=== PATIENT | female | born 1930 | race Caucasian/White ===

== ENCOUNTER 2019-04-19 13:19 | Inpatient (IN) ==
[2019-04-19] MEDS ORDERED: SODIUM CHLORIDE 0.9% 1000ML 1,000 ML IV SCH (13:45)
[2019-04-19 14:11] LABS: Basophils # (auto) 0.04 K/uL (0-0.2); Basophils % (auto) 0.2 %; Eosinophils # (auto) 0.01 K/uL (0-0.5); Hematocrit (blood only) 37.9 % (37-47); Hemoglobin 12.4 g/dL (12.0-16.0); Immature Granulocytes % (auto) 1.5 %; Lymphocytes # (auto) 1.42 K/uL (1.2-3.4); Mean Corpuscular Hgb Conc 32.7 g/dL (32-36); Mean Corpuscular Volume 99.2 fL (80-100); Mean Platelet Volume 9.2 fL (7.4-10.4); Monocytes # (auto) 2.22 K/uL (0.11-0.59); Monocytes % (auto) 10.9 %; Neutrophils # (auto) 16.38 K/uL (1.4-6.5); Neutrophils % (auto) 80.4 %; Nucleated RBC # (auto) 0.03 K/uL (0-0); Nucleated RBC % (auto) 0.1 %; Platelet Count 318 K/uL (130-400); RDW Coefficient of Variation 16.1 % (11.5-14.5); Red Blood Count 3.82 M/uL (4.2-5.4); White Blood Count 20.37 K/uL (4.8-10.8)
--- NOTE | 2019-04-19 14:21 | XRay Report ---
XR chest 1V portable HISTORY: 88 years-old Female weakness acute weakness COMPARISON: Chest radiograph 01/03/2019 TECHNIQUE: Portable AP view of the chest FINDINGS: Patient is slightly rotated. Cardiomediastinal and hilar silhouettes are unchanged. Calcification of the thoracic aortic arch. Mild biapical pleural-parenchymal scarring redemonstrated. There is mild ri ght hemidiaphragmatic elevation without pneumothorax, large pleural effusion or overt pulmonary edema . Linear retrocardiac left basilar opacities. Degenerative changes of the shoulders and spine. Subacu te impacted comminuted left proximal humeral fracture. IMPRESSION: 1. No acute process. 2. Linear retrocardiac left basilar opacities suggest atelectasis/scarring. 3. Impacted subacute appearing proximal left humeral fracture. The above report was generated using voice recognition software. It may contain grammatical, syntax o r spelling errors. Electronically signed by: Matthew Jones M.D. 04/19/2019 2:19 PM
[2019-04-19 14:41] LABS: Appearance Urine Clear (Clear); Bacteria Urine Automated Negative (Negative); Bilirubin Urine Negative (Negative); Blood Urine Negative (Negative); Color Urine Dark Yellow; Epithelial Cell Urine Auto >30 /lpf (0-5); Glucose Urine UA Negative (Negative); Ketones Urine Trace (Negative); Leukocyte Esterase Urine 2+ (Negative); Nitrite Urine Negative (Negative); Protein Urine Negative (Negative); RBC Urine Automated 0-4 /hpf (0-4); Specific Gravity Urine 1.023 (1.000-1.030); Urobilinogen Urine Negative (Negative)
[2019-04-19 14:52] LABS: Alanine Aminotransferase 28 U/L (12-78); Albumin Level 2.4 gm/dl (3.4-5.0); BUN Creatinine Ratio 41.7 (10-20); Blood Urea Nitrogen 31 mg/dl (7-18); Calcium 8.5 mg/dl (8.5-10.1); Carbon Dioxide 24 mmol/L (21-32); Chloride 110 mmol/L (98-107); Creatinine Clr Calc Pharmacy 43.7 ml/min; Est GFR (African American) 81.9; Est GFR (Non-African American) 70.7; Glucose 107 mg/dl (70-99); Sodium 142 mmol/L (136-145)
[2019-04-19 15:00] LABS: Albumin Globulin Ratio 0.6 (0.9-2); Alkaline Phosphatase 118 U/L (45-117); Bilirubin,Total 0.9 mg/dl (0.2-1); Globulin 3.8 gm/dl (2.5-4.0); Total Protein 6.2 gm/dl (6.4-8.2); Troponin I < 0.015 ng/ml (0-0.045)
--- NOTE | 2019-04-19 15:04 | CT Scan Report ---
ABDOMEN AND PELVIS CT WITHOUT CONTRAST CT DOSE: 485.82 mGycm HISTORY: Lower abdominal pain. TECHNIQUE: Multiaxial CT images of the abdomen and pelvis were performed without contrast. A dose lo wering technique was utilized adhering to the principles of ALARA. COMPARISON STUDY: None. FINDINGS: Small fat-containing bilateral Bochdalek's hernias. No pneumoperitoneum. No pneumatosis. Th ere is a left total hip arthroplasty. No suspicious lytic or blastic osseous lesions. Small hiatus he rnia. Punctate calcification within the right kidney which is likely vascular. A 2 cm hypodense lesio n within the upper pole the left kidney is incompletely characterize on this noncontrast study but fa vors a cyst. The unenhanced liver, spleen, and pancreas are unremarkable. Normal adrenal glands. No g allbladder wall thickening. The gallbladder and common bile duct are mildly distended. The common ben e duct measures up to 11 mm in diameter. No retroperitoneal lymphadenopathy. Normal caliber abdominal aorta. The bladder is decompressed by Martinez catheter. There is bladder wall thickening with adjacent fat stranding. The uterus contains a small amount of gas at the endometrium. Large amount of stool w ithin the sigmoid colon and rectum. A large stool ball within the rectum measures up to 9.7 cm in ori meter. There is perisigmoid and perirectal edema/fat stranding with associated bowel wall thickening. Of note, evaluation for bowel pathology is suboptimal due to the lack of intravenous and oral contra st. Multiple colonic diverticula. Moderate well-formed stool throughout the remaining colon. Normal a ppendix. No evidence for bowel obstruction. IMPRESSION: 1. Large amount stool within the sigmoid colon and rectum with a large stool ball measuring 9.7 cm in the rectum. There is associated bowel wall thickening and perisigmoid/perirectal edema and fat stra nding consistent with inflammatory change. Therefore, this favors a stercoral colitis. Infectious/inf lammatory colitis or possibly diverticulitis could also have a similar appearance. 2. Bladder wall thickening with adjacent inflammatory change. This likely represents a cystitis. George mmend correlation with urinalysis. Of note, the bladder is decompressed by Martinez catheter. 3. Mild dilatation of the gallbladder and common bile duct. Recommend correlation with LFTs to exclud e an obstructive process. Electronically signed by: Shahram Escudero M.D. 04/19/2019 3:02 PM
[2019-04-19] MEDS ORDERED: PIPERACILLIN/TAZOBACTAM 4.5 GM/120 ML BAG IV ONE (15:29)
[2019-04-19] MEDS ORDERED: DAPTOmycin 325 MG in SYRINGE 0 ML IV ONE (15:29)
[2019-04-19] MEDS ORDERED: PIPERACILL/TAZOBAC CONSULT ACTIVE PRN (15:29)
[2019-04-19] MEDS ORDERED: SODIUM CHLORIDE 0.9% 1000ML 500 ML IV ONE ×2 (15:29→15:31)
[2019-04-19 16:37] LABS: Magnesium 2.3 mg/dl (1.8-2.4)
--- NOTE | 2019-04-19 16:37 | Communication Note ---
Date of Service: April 19, 2019 88-year-old female was at [facility] presents with reduced urination and abdominal discomfort. Family noted increased abdominal distention over the weekend and for the past couple of days staff at [facility] has been monitoring this. They noted urinary retention yesterday and the patient was straight cathed however, she continued to have urinary issues and was therefore sent into the ER.On arrival to the ER she was afebrile and in no acute distress with a heart rate in the low 100s to 120s with normal respiratory rate and normal to low blood pressure. Per her daughter her blood pressure in the 90s is normal reading for her. Lab work revealed a blood cell count of 20,000, normal H&H and normal platelets. Her chemistry revealed a sodium of 142, BUN of 31 creatinine 0.75 with a GFR that was normal. Her magnesium was 2.3. Aminotransferases were not elevated, troponin was normal urinalysis revealed no bacteria and greater than 30 epis with 2+ leuk esterase. Her urine was dark yellow to orange in color but appearing very concentrated. A Martinez was placed and no output was officially recorded however staff stated 250 cc returned. On exam the patient is in no acute distress and demented. She is able to articulate words with normal speech but she is not oriented or able to answer historical questions. History was taken from the daughter who was at bedside. There is no respiratory distress with clear lungs to auscultation bilaterally. Abdominal exam reveals a protuberant but nondistended abdomen that is soft. There is generalized tenderness throughout specifically in the suprapubic area. She does have a stage III pressure wound on her left heel that is not acutely draining but does have some whitish material inside the ulcer concerning for possible infection. There is some erythema around this but not consistent with infection. At one point her heart rate went up into the 120s and her blood pressure was measured at 80 systolic with a picture concerning for sepsis. Blood cultures were drawn and broad-spectrum antibiotics were administered in the ER including daptomycin and Zosyn. IV fluids were given. Notably, a nurse in the ER changed the blood pressure cuff to one more appropriately sized for her and her blood pressure reread at 98 systolic. Assessment: 1. Sepsis-meeting sepsis criteria with possible infection. It is also possible that is in response to retained stool. We will also need to image the foot to ensure no evidence of osteomyelitis source. Exam is limited because of her dementia. Continue with laxatives, suppositories and enema if needed. Continue broad-spectrum antibiotics pending blood pressure results and clinical improvement. Trend CBC in a.m. Treat dehydration with IV fluids. 2. Dehydration-as evidenced from BUN to creatinine ratio that is elevated and clinical picture (dark concentrated urine, elevated specific gravity on urinalysis, low urine output, high normal sodium). Continue with IV fluids. She will need to be encouraged to drink fluids. 3. Constipation-plan as above 4. Stage III pressure ulcer on left heel-rule out osteomyelitis with x-ray as initial screening and MRI if needed. Continue broad broad-spectrum antibiotics. Consult wound care. 5. Ambulatory dysfunction-daughter reports 5 falls in the last 6 months to year. The patient was recently seen in the ER for a fall with trauma to the head and byron were placed. On exam this area is caked with scab material and byron are not readily visible. Will need to have nursing clean this area off and possibly remove byron this admission. PT/OT for evaluation. Hilda Shaw DO [facility] Hospitalist
[2019-04-19] MEDS ORDERED: GLYCERIN ADULT 12 EA SUPP PR SCH (17:15)
--- NOTE | 2019-04-19 17:34 | XRay Report ---
XR foot LT min 3V routine CLINICAL HISTORY: Right foot pain. Possible osteomyelitis. COMPARISON: None. DISCUSSION: The bones are significantly osteopenic. There are vascular calcifications present. There is an old healed fifth metatarsal fracture. No acute fractures are visualized. There is a soft tissue ulceration of the heel. There is equivocal soft tissue ulceration at the level of the distal phalanx of the great toe. There is no radiographic evidence of acute osteomyelitis. IMPRESSION: 1. Osteopenia 2. No acute fractures 3. No conventional radiographic evidence of osteomyelitis Electronically signed by: Jasmeet Armenta M.D. 04/19/2019 5:32 PM
--- NOTE | 2019-04-19 17:46 | History & Physical Report ---
Date of Service April 19, 2019 Assessment & Plan (1) Sepsis: (2) Colitis: -Admit to [facility] with telemetry -Patient presenting from [facility] for evaluation of abdominal pain and distention, urinary retention -On presentation: WBC 20 K, tachycardic in the 120s to 130s; BP borderline low at times (chronic per daughter); lactate pending -CT ABD/pelvis showing large stool ball in the rectum measuring 9.7 cm in the rectum. There is associated bowel wall thickening and perisigmoid/perirectal edema and fat stranding consistent with inflammatory change. Therefore, this favors a stercoral colitis. Infectious/inflammatory colitis or possibly diverticulitis could also have a similar appearance. -There is also ductal dilatation noted on CT however normal LFTs; cystitis mentioned as well however UA does not suggest infection -leukocytosis and tachycardia possibly being driven by pain and dehydration -Suspect colitis secondary to stool ball/constipation, however given leukocytosis and tachycardia, will cover empirically for antibiotics for now -Has chronic loose stools at baseline, no reports of worsening diarrhea -S/P Dapto and Zosyn in the ED, continue with both -Blood cultures (noted to be obtained after antibiotics) -Left heel wound management as below (3) Open wound of left heel: - ~3 cm wound noted to the left heel, no surrounding erythema or significant drainage -Wound culture from 03/27/2019+ for MRSA, patient was placed on Bactrim on 03/31 -X-ray was obtained that was negative for osteomyelitis (may need MRI, appreciate recommendations from wound care) -Obtain repeat wound culture -Wound care consult -Antibiotics as above (4) Constipation: -Large stool ball in the rectum as noted above -Start bowel regimen with glycerin suppository x1, MiraLAX every 6 hours, Colace twice daily -Encourage hydration (5) Dehydration: -Patient appears very dry on exam, concentrated urine -NSS at 125/hr -Renal functions normal (6) Urinary retention: -Martinez placed in ER -UA does not suggest UTI -Suspect likely reactionary secondary to colitis/constipation (7) DVT prophylaxis: -SQ heparin History of Present Illness Chief Complaint: Abdominal distention, urinary retention Primary Care Provider: [facility] 88-year-old female who was sent to the ED from [facility] for evaluation of abdominal distention and urinary retention. Yesterday, patient developed urinary retention and has required several straight catheterizations. She also has developed abdominal distention. Labs were obtained that showed a WBC 19 K, and patient was sent to the ED for further evaluation. Patient has underlying dementia and history is somewhat unobtainable from her. Daughter is the bedside who reports that last normal bowel movement was 2 days ago. Patient does have loose stools at baseline secondary to underlying IBS. There is some mild abdominal pain however no nausea or vomiting. Patient denies chest pain shortness of breath. No lightheadedness, dizziness, diaphoresis, syncopal events. In the ED, labs showed WBC 20 K, initial heart rate in the 120s to 130s, BP borderline low at times (chronic per daughter). CT ABD/pelvis is showing large amount stool within the sigmoid colon and rectum with a large stool ball measuring 9.7 cm in the rectum. There is associated bowel wall thickening and perisigmoid/perirectal edema and fat stranding consistent with inflammatory change favoring a stercoral colitis. Infectious/inflammatory colitis or possibly diverticulitis could also have a similar appearance. She was given IVF, IV daptomycin, IV Zosyn. Allergies Allergy/AdvReac Type Severity Reaction Status Date / Time No Known Allergies Allergy Unverified 04/19/19 14:27 Home Medications Home Medications Medication Instructions Recorded Confirmed Type acetaminophen [Tylenol] 650 mg PO Q4H PRN 04/06/19 04/19/19 History aspirin [Aspirin Childrens] 81 mg PO DAILY 04/06/19 04/19/19 History bisacodyl 10 mg ND DIRECTED 04/06/19 04/19/19 History bisacodyl [Dulcolax (bisacodyl)] 10 mg ND DIRECTED PRN 04/06/19 04/19/19 History calcium carbonate 500 mg PO BID 04/06/19 04/19/19 History ergocalciferol (vitamin D2) 50,000 unit PO WK 04/06/19 04/19/19 History [Vitamin D2] oxycodone 5 mg PO Q4H PRN 04/06/19 04/19/19 History sodium phosphates [Fleet Enema] 118 ml ND DIRECTED PRN 04/06/19 04/19/19 History vitamins A,C,[id number]-[id number] 1 cap PO BID 04/06/19 04/19/19 History [PreserVision AREDS] [id number] 1 packet PO BID 04/06/19 04/19/19 History [ArgiMent AT] Past Med/Surg History Medical History Closed fracture of left proximal humerus (Chronic) s/p repair Senile dementia (Chronic) IBS (irritable bowel syndrome) (Chronic) Fracture of left hip (Chronic) s/p repair Surgical History History of D&C (Resolved) Family History Unknown Family history non-contributory Noncontributory secondary to patient's advanced age Social History Preferred Language: Romanian Communication Ability: Effective Beliefs That Will Affect Care: None marital status: / Current Living Situation: Personal Care Facility Current Living Situation Comment: from [facility] Feels Safe at Home: Yes Smoking Status: Never smoker Hx Alcohol Use: Yes Alcohol type: wine Hx Substance Use: No Review of Systems Review of Systems: Reviewed however felt to be somewhat unreliable due to underlying dementia. Physical Exam Constitutional: WD/WN, vitals as above Eyes: PERRL, conjunctivae normal, anicteric sclerae ENMT: Ears: no external ear abnormality Nose: no external nose abnormality Mouth: + dry oral mucous membranes (Tongue extremely dry) Respiratory: normal respiratory effort, lungs clear to auscultation Cardiovascular: Rate/Rhythm: regular rhythm and + tachycardic Vessels: normal peripheral pulses Extremities: no edema Gastrointestinal (Abdomen): Inspection/Auscultation: + abdomen distended and normal bowel sounds Percussion/Palpation: abdomen soft; abdomen nontender and no hepatosplenomegaly Musculoskeletal: no cyanosis or clubbing, extremities motor strength 5/5 Skin: no rashes, warm and dry + wound (Left heel, ~3 cm in diameter, no surrounding erythema or significant drainage noted, granulation tissue present) Neurologic: PERRL, EOMI, accommodation nl, no face palsy, no dysarthria Psychiatric: Orientation: alert, oriented to person and oriented to place; + not oriented to time Cognition: + recent memory not intact Insight: + limited insight Genitourinary: Martinez in place draining tea colored urine Results & Data Vital Signs (Past 12 Hours) Vital Signs Temp Pulse Resp BP Pulse Ox 04/19/19 16:00 123 H 24 80/55 L 90 04/19/19 15:30 105 H 21 101/59 L 97 04/19/19 15:00 122 H 24 91/62 L 88 L 04/19/19 14:55 127 H 24 96/69 L 96 04/19/19 14:30 109 H 29 H 04/19/19 14:00 105 H 26 H 04/19/19 13:30 109 H 24 96 04/19/19 13:29 36.3 C L 115 H 19 118/78 96 04/19/19 13:25 114 H 25 H 118/78 96 Laboratory Results Short CBC 04/19/19 Range/Units 13:56 WBC 20.37 H (4.8-10.8) K/uL Hgb 12.4 (12.0-16.0) g/dL Hct 37.9 (37-47) % Plt Count 318 (130-400) K/uL BMP 04/19/19 13:56 Sodium 142 Potassium Chloride 110 H Carbon Dioxide 24 BUN 31 H Creatinine 0.75 Glucose 107 H Calcium 8.5 Cardiac Enzymes 04/19/19 Range/Units 13:56 Troponin I < 0.015 (0-0.045) ng/ml Liver Function 04/19/19 04/19/19 Range/Units 13:56 16:06 Total Bilirubin 0.9 (0.2-1) mg/dl AST 15 (15-37) U/L ALT 28 (12-78) U/L Alkaline Phosphatase 118 H (45-117) U/L Albumin 2.4 L (3.4-5.0) gm/dl Urine 04/19/19 Range/Units Unknown Urine Color Dark Yellow Urine Appearance Clear (Clear) Urine pH 5.0 (4.5-7.5) Ur Specific [place] 1.023 (1.000-1.030) Urine Protein Negative (Negative) Urine Glucose (UA) Negative (Negative) Diagnostic Findings CT ABD/PELVIS IMPRESSION: 1. Large amount stool within the sigmoid colon and rectum with a large stool ball measuring 9.7 cm in the rectum. There is associated bowel wall thickening and perisigmoid/perirectal edema and fat stranding consistent with inflammatory change. Therefore, this favors a stercoral colitis. Infectious/inflammatory colitis or possibly diverticulitis could also have a similar appearance. 2. Bladder wall thickening with adjacent inflammatory change. This likely represents a cystitis. Recommend correlation with urinalysis. Of note, the bladder is decompressed by Martinez catheter. 3. Mild dilatation of the gallbladder and common bile duct. Recommend correlation with LFTs to exclude an obstructive process. CXR IMPRESSION: 1. No acute process. 2. Linear retrocardiac left basilar opacities suggest atelectasis/scarring. 3. Impacted subacute appearing proximal left humeral fracture. LEFT FOOT X-RAY IMPRESSION: 1. Osteopenia 2. No acute fractures 3. No conventional radiographic evidence of osteomyelitis Code Status & VTE Plan Code Status Patient is a DNR as per my discussion with her daughter at the bedside as well as documentation sent from [facility]. VTE Prophylaxis Plan VTE Prophylaxis will be ordered: Yes
--- NOTE | 2019-04-19 17:48 | Emergency Department Note ---
Entered by Amber Loza acting as a scribe for Myron Amaro MD ED Provider Note CHIEF COMPLAINT: Urinary Retention HISTORY OF PRESENT ILLNESS: The patient is an 88 year old female who presents to the Emergency Room with complaints of urinary retention over the last several days. Per nursing staff, the patient had a straight cath done about 1 hour prior to arrival that put out 250 CCs. Per nursing staff, the patient has also had abdominal pain. Per nursing staff, the patient is a DNR. She denies having headaches, chest pain, and shortness of breath. Limited HPI secondary to AMS. REVIEW OF SYSTEMS: Limited ROS secondary to AMS. PMHx/PSHx: Senile dementia, CKD, IBS SOCIAL HISTORY: [facility]. PHYSICAL EXAM: GENERAL: Awake, alert, well-appearing, in no distress HENT: Normocephalic, atraumatic. Oropharynx unremarkable. EYES: PERRL. Normal conjunctiva. Sclera non-icteric. NECK: Inspection normal. Non-tender. Supple. No nuchal rigidity. FROM. No masses. RESPIRATORY: Clear to auscultation. No wheezes. No rales. Normal respiratory effort. CARDIAC: Normal rate. Normal rhythm. No murmurs. No rubs. Extremities warm and well perfused. Pulses equal. No JVD. GI: Soft, non-distended. Lower abdominal tenderness to palpation. No rebound or guarding. No masses. RECTAL: Deferred. MUSCULOSKELETAL: Atraumatic. Chest examination reveals no tenderness. The back is symmetrical on inspection without obvious abnormality. There is no CVA tenderness to palpation. No joint edema. LOWER EXTREMITIES: Calves are equal size bilaterally and non-tender. Trace lower extremity edema. No discoloration. She has a stage 3 quarter size ulcer on the left heel with draining and no surrounding erythema. NEURO: Mildly altered sensorium. SKIN: No rash or jaundice noted. EMERGENCY DEPARTMENT COURSE: 1325: Past medical records reviewed. The patient was evaluated in room B11B, and a complete history and physical examination were performed. 1546: I discussed the patient's case with Dr. Cruz who will evaluate the patient for further management. MEDICAL DECISION MAKING: Nursing notes reviewed and agree them. Additional history obtained from the patient's daughter The patient's history was concerning for altered mental status and urinary retention. Differential diagnosis: Etiologies such as infection, hypoglycemia, electrolyte abnormalities, cardiac sources, intracerebral event, toxicologic, neurologic, as well as others were entertained. Physical examination: As above. The patient had lower abdominal tenderness. ER treatment provided: IV Lock Normal saline hydration IV Zosyn IV daptomycin Martinez catheter On reassessment the patient felt more comfortable. Diagnostics interpretation by me: ECG: No acute ischemia. The labs revealed a significant leukocytosis on CBC. Chemistry panel was unremarkable. Urinalysis showed no convincing evidence of infection. Blood cultures performed. Imaging studies: CT imaging revealed findings concerning for possible diverticulitis. There was also moderate stool present and stercoral colitis was a possibility. The patient will need further management in the hospital. Consultation: A consultation was placed with Dr. Shaw, the [facility] hospitalist. The case was discussed and diagnostics were reviewed. The patient was evaluated in the ER for further treatment. IMPRESSION: Diverticulitis, urinary retention, leukocytosis, hypotension, and constipation PLAN: Admission The scribe's documentation has been prepared under my direction and personally reviewed by me in its entirety. I confirm that the note above accurately reflects all work, treatment, procedures, and medical decision making performed by me. Impression & Plan Diverticulitis, Leukocytosis, Urinary retention, Hypotension, Constipation Past Med/Surg History Medical History Closed fracture of left proximal humerus (Chronic) s/p repair Senile dementia (Chronic) IBS (irritable bowel syndrome) (Chronic) Fracture of left hip (Chronic) s/p repair Surgical History History of D&C (Resolved) Family History Unknown Family history non-contributory Noncontributory secondary to patient's advanced age Social History Preferred Language: Welsh Communication Ability: Effective Beliefs That Will Affect Care: None marital status: / Current Living Situation: Personal Care Facility Current Living Situation Comment: from [facility] Feels Safe at Home: Yes Smoking Status: Never smoker Hx Alcohol Use: Yes Alcohol type: wine Hx Substance Use: No Results & Data Vital Signs Vital Signs - 24 hr 04/19/19 13:25 04/19/19 13:29 04/19/19 13:30 Temperature 36.3 C L Temperature Source Oral Sepsis Recent Fever Within 48 Hours No Sepsis New/Unexplained Change in Mental Status No Sepsis Action Taken by Nursing No Action Required Pulse Rate 114 H 115 H 109 H Pulse Rate from SpO2 Sensor 113 H 118 H Respiratory Rate 25 H 19 24 Respiratory Effort / Characteristics Non-Labored Spontaneous Respiratory Depth Normal Respiratory Pattern Regular Blood Pressure 118/78 118/78 Blood Pressure Mean 91 91 Pulse Oximetry 96 96 96 Oxygen Delivery Method Room Air 04/19/19 14:00 04/19/19 14:30 04/19/19 14:55 Temperature Temperature Source Sepsis Recent Fever Within 48 Hours Sepsis New/Unexplained Change in Mental Status Sepsis Action Taken by Nursing Pulse Rate 105 H 109 H 127 H Pulse Rate from SpO2 Sensor 117 H Respiratory Rate 26 H 29 H 24 Respiratory Effort / Characteristics Respiratory Depth Respiratory Pattern Blood Pressure 96/69 L Blood Pressure Mean 78 Pulse Oximetry 96 Oxygen Delivery Method 04/19/19 15:00 04/19/19 15:30 04/19/19 16:00 Temperature Temperature Source Sepsis Recent Fever Within 48 Hours Sepsis New/Unexplained Change in Mental Status Sepsis Action Taken by Nursing Pulse Rate 122 H 105 H 123 H Pulse Rate from SpO2 Sensor 114 H 116 H 132 H Respiratory Rate 24 21 24 Respiratory Effort / Characteristics Respiratory Depth Respiratory Pattern Blood Pressure 91/62 L 101/59 L 80/55 L Blood Pressure Mean 71 73 63 Pulse Oximetry 88 L 97 90 Oxygen Delivery Method 04/19/19 16:22 04/19/19 16:30 Temperature Temperature Source Sepsis Recent Fever Within 48 Hours Sepsis New/Unexplained Change in Mental Status Sepsis Action Taken by Nursing Pulse Rate 139 H 120 H Pulse Rate from SpO2 Sensor Respiratory Rate 28 H 23 Respiratory Effort / Characteristics Respiratory Depth Respiratory Pattern Blood Pressure 98/68 L 107/60 Blood Pressure Mean 78 75 Pulse Oximetry Oxygen Delivery Method Home Medications Current Medication List: was personally reviewed by me Laboratory Data Attestation: I reviewed the patient's lab results. Result diagrams: 04/19/19 13:56 04/19/19 13:56 Lab Results 04/19/19 04/19/19 04/19/19 Range/Units 13:56 13:56 16:06 WBC 20.37 H (4.8-10.8) K/uL RBC 3.82 L (4.2-5.4) M/uL Hgb 12.4 (12.0-16.0) g/dL Hct 37.9 (37-47) % MCV 99.2 (80-100) fL MCH 32.5 (25-34) pg MCHC 32.7 (32-36) g/dL RDW Std Deviation 58.0 H (36.4-46.3) fL RDW Coeff of Mansi 16.1 H (11.5-14.5) % Plt Count 318 (130-400) K/uL MPV 9.2 (7.4-10.4) fL Immature Gran % (Auto) 1.5 % Neut % (Auto) 80.4 % Lymph % (Auto) 7.0 % [place] % (Auto) 10.9 % Eos % (Auto) 0.0 % Baso % (Auto) 0.2 % Immature Gran # (Auto) 0.30 H (0.00-0.02) K/uL Neut # (Auto) 16.38 H (1.4-6.5) K/uL Lymph # (Auto) 1.42 (1.2-3.4) K/uL [place] # (Auto) 2.22 H (0.11-0.59) K/uL Eos # (Auto) 0.01 (0-0.5) K/uL Baso # (Auto) 0.04 (0-0.2) K/uL Absolute Nucleated RBC 0.03 H (0-0) K/uL Nucleated RBC % (auto) 0.1 % Sodium 142 (136-145) mmol/L Potassium (3.5-5.1) mmol/L Chloride 110 H (98-107) mmol/L Carbon Dioxide 24 (21-32) mmol/L Anion Gap 9.0 (3-11) BUN 31 H (7-18) mg/dl Creatinine 0.75 (0.6-1.2) mg/dl Est Cr Clr Drug Dosing 43.7 ml/min Est GFR ( Amer) 81.9 Est GFR (Non-Af Amer) 70.7 BUN/Creatinine Ratio 41.7 H (10-20) Glucose 107 H (70-99) mg/dl Calcium 8.5 (8.5-10.1) mg/dl Magnesium 2.3 (1.8-2.4) mg/dl Total Bilirubin 0.9 (0.2-1) mg/dl AST 15 (15-37) U/L ALT 28 (12-78) U/L Alkaline Phosphatase 118 H (45-117) U/L Troponin I < 0.015 (0-0.045) ng/ml Total Protein 6.2 L (6.4-8.2) gm/dl Albumin 2.4 L (3.4-5.0) gm/dl Globulin 3.8 (2.5-4.0) gm/dl Albumin/Globulin Ratio 0.6 L (0.9-2) TSH 1.040 (0.300-4.500) uIu/ml Administered Medications Discontinued Medications Sodium Chloride (Nss 1000ml) 1,000 mls @ 125 mls/hr IV .Q8H QUINTIN Stop: 04/19/19 21:44 Last Admin: 04/19/19 14:56 Dose: 125 mls/hr Documented by: [id number] Sodium Chloride (Nss 1000ml) 500 mls @ 999 mls/hr IV .Q31M ONE Stop: 04/19/19 15:59 Last Infusion: 04/19/19 17:12 Dose: 0 mls/hr Documented by: [id number] Admin: 04/19/19 16:32 Dose: 999 mls/hr Documented by: [id number] Piperacillin Sod/Tazobactam Sod (Zosyn) 4.5 gm in 120 mls @ 240 mls/hr IV NOW ONE Stop: 04/19/19 15:58 Last Infusion: 04/19/19 17:12 Dose: 0 mls/hr Documented by: [id number] Admin: 04/19/19 16:31 Dose: 240 mls/hr Documented by: [id number] Daptomycin 325 mg/ Syringe 6.5 mls @ 3.25 mls/min IV NOW ONE; Protocol Stop: 04/19/19 15:30 Last Admin: 04/19/19 16:31 Dose: 3.25 mls/min Documented by: [id number] Imaging Data Radiologist's Impression: Radiology results as stated below per my review and the radiologist's interpretation: XR chest 1V portable HISTORY: 88 years-old Female weakness acute weakness COMPARISON: Chest radiograph 01/03/2019 TECHNIQUE: Portable AP view of the chest FINDINGS: Patient is slightly rotated. Cardiomediastinal and hilar silhouettes are unchanged. Calcification of the thoracic aortic arch. Mild biapical pleural- parenchymal scarring redemonstrated. There is mild right hemidiaphragmatic elevation without pneumothorax, large pleural effusion or overt pulmonary edema. Linear retrocardiac left basilar opacities. Degenerative changes of the shoulde rs and spine. Subacute impacted comminuted left proximal humeral fracture. IMPRESSION: 1. No acute process. 2. Linear retrocardiac left basilar opacities suggest atelectasis/scarring. 3. Impacted subacute appearing proximal left humeral fracture. The above report was generated using voice recognition software. It may contain grammatical, syntax or spelling errors. Electronically signed by: Matthew Jones M.D. 04/19/2019 2:19 PM ABDOMEN AND PELVIS CT WITHOUT CONTRAST CT DOSE: 485.82 mGycm HISTORY: Lower abdominal pain. TECHNIQUE: Multiaxial CT images of the abdomen and pelvis were performed without contrast. A dose lowering technique was utilized adhering to the principles of ALARA. COMPARISON STUDY: None. FINDINGS: Small fat-containing bilateral Bochdalek's hernias. No pneumoperitoneum. No pneumatosis. There is a left total hip arthroplasty. No suspicious lytic or blastic osseous lesions. Small hiatus hernia. Punctate calcification within the right kidney which is likely vascular. A 2 cm hypodense lesion within the upper pole the left kidney is incompletely characterize on this noncontrast study but favors a cyst. The unenhanced liver, spleen, and pancreas are unremarkable. Normal adrenal glands. No gallbladder wall thi ckening. The gallbladder and common bile duct are mildly distended. The common bile duct measures up to 11 mm in diameter. No retroperitoneal lymphadenopathy. Normal caliber abdominal aorta. The bladder is decompressed by Martinez catheter. There is bladder wall thickening with adjacent fat stranding. The uterus contains a small amount of gas at the endometrium. Large amount of stool within the sigmoid colon and rectum. A large stool ball within the rectum measures up to 9.7 cm in diameter. There is perisigmoid and perirectal edema/fat stranding with associated bowel wall thickening. Of note, evaluation for bowel pathology is suboptimal due to the lack of intravenous and oral contrast. Multiple colonic diverticula. Moderate well-formed stool throughout the remaining colon. Normal appendix. No evidence for bowel obstruction. IMPRESSION: 1. Large amount stool within the sigmoid colon and rectum with a large stool ball measuring 9.7 cm in the rectum. There is associated bowel wall thickening and perisigmoid/perirectal edema and fat stranding consistent with inflammatory change. Therefore, this favors a stercoral colitis. Infectious/inflammatory colitis or possibly diverticulitis could also have a similar appearance. 2. Bladder wall thickening with adjacent inflammatory change. This likely represents a cystitis. Recommend correlation with urinalysis. Of note, the bladder is decompressed by Martinez catheter. 3. Mild dilatation of the gallbladder and common bile duct. Recommend yoel elation with LFTs to exclude an obstructive process. Electronically signed by: Shahram Escudero M.D. 04/19/2019 3:02 PM ECG Data Attestation: I personally reviewed and interpreted this ECG as follows: Indication: altered mental status Rhythm: sinus tachycardia Findings: + PAC; no ST depression, no ST elevation and no acute ischemic change Blood Pressure Blood Pressure Findings: Normal blood pressure Discharge Plan Visit Data Chief Complaint: Unable to Void ED Provider: Myron Amaro Discharge Problem: Diverticulitis, Leukocytosis, Urinary retention, Hypotension, Constipation Patient Disposition: Being Evaluated by Hospitalist Discharge Instructions Interventions: ED Discharge Assessment Last Done: 04/19/19 18:02 The scribe's documentation has been prepared under my direction and personally reviewed by me in its entirety. I confirm that the note above accurately refl ects all work, treatment, procedures, and medical decision making performed by me.
[2019-04-19] MEDS: SODIUM CHLORIDE 0.9% 1000ML 1,000 ML IV SCH (18:48)
[2019-04-19] MEDS ORDERED: POTASSIUM CHLORIDE 20 MEQ TABCR PO STA (18:57)
[2019-04-19] MEDS ORDERED: GLYCERIN ADULT 12 EA SUPP PR ONE (19:53)
[2019-04-19] MEDS: POLYETHYLENE (MIRALAX) 17 GM PACK PO SCH ×2 (19:58→23:16)
[2019-04-19] MEDS ORDERED: DAPTOmycin 500 MG VIAL IV SCH (20:00)
[2019-04-19] MEDS ORDERED: KETOROLAC TROMETHAMINE 15 MG/ML VIAL IV ONE (20:04)
[2019-04-19] MEDS ORDERED: KETOROLAC TROMETHAMINE 15 MG/ML VIAL ONE (20:08)
[2019-04-19 20:56] LABS: INR 1.6 (0.9-1.1); Prothrombin Time 15.9 Seconds (9.0-12.0)
[2019-04-19] MEDS: CEROVITE ADV FORMULA TAB PO SCH (21:09)
[2019-04-19] MEDS: DOCUSATE SODIUM 100 MG CAP PO SCH (21:09)
[2019-04-19] MEDS: CALCIUM CARBONATE 1250MG TAB PO SCH (21:09)
[2019-04-19 21:22] LABS: Partial Thromboplastin Ratio 1.9
[2019-04-19 21:26] LABS: Partial Thromboplastin Time 52.6 Seconds (21.0-31.0)
[2019-04-19] MEDS: HEPARIN SOD 5,000 UNIT/0.5 ML VIAL SQ SCH (22:13)
[2019-04-19] MEDS: PIPERACILLIN/TAZOBACTAM 3.375 GM in DEXTROSE 5% 100 ML IV SCH (22:14)
[2019-04-20] MEDS: SODIUM CHLORIDE 0.9% 1000ML 1,000 ML IV SCH ×2 (01:49→14:20)
[2019-04-20] MEDS: ACETAMINOPHEN 325 MG TAB PO PRN (03:39)
[2019-04-20] MEDS: HEPARIN SOD 5,000 UNIT/0.5 ML VIAL SQ SCH ×3 (05:53→21:12)
[2019-04-20] MEDS: POLYETHYLENE (MIRALAX) 17 GM PACK PO SCH ×3 (05:54→17:21)
[2019-04-20] MEDS: PIPERACILLIN/TAZOBACTAM 3.375 GM in DEXTROSE 5% 100 ML IV SCH ×2 (06:02→14:20)
[2019-04-20 06:08] LABS: Hematocrit (blood only) 33.1 % (37-47); Mean Corpuscular Hgb Conc 33.2 g/dL (32-36); Mean Corpuscular Volume 97.6 fL (80-100); Mean Platelet Volume 8.9 fL (7.4-10.4); Nucleated RBC # (auto) 0.02 K/uL (0-0); Nucleated RBC % (auto) 0.1 %; Platelet Count 267 K/uL (130-400); RDW Coefficient of Variation 16.1 % (11.5-14.5); RDW Standard Deviation 56.9 fL (36.4-46.3); Red Blood Count 3.39 M/uL (4.2-5.4); White Blood Count 17.38 K/uL (4.8-10.8)
[2019-04-20 06:38] LABS: BUN Creatinine Ratio 34.1 (10-20); Calcium 7.4 mg/dl (8.5-10.1); Creatinine Clr Calc Pharmacy 41.9 ml/min; Est GFR (African American) 86.1; Est GFR (Non-African American) 74.3; Potassium 3.5 mmol/L (3.5-5.1)
[2019-04-20 07:02] LABS: Fibrinogen 614 mg/dl (184-400); INR 1.3 (0.9-1.1); Prothrombin Time 12.7 Seconds (9.0-12.0)
[2019-04-20] MEDS: CALCIUM CARBONATE 1250MG TAB PO SCH ×3 (08:46→21:13)
[2019-04-20] MEDS: DOCUSATE SODIUM 100 MG CAP PO SCH ×2 (08:47→08:58)
[2019-04-20] MEDS: ASPIRIN 81 MG CHEW PO SCH (08:47)
[2019-04-20] MEDS: CEROVITE ADV FORMULA TAB PO SCH ×2 (08:47→21:12)
--- NOTE | 2019-04-20 11:29 | Hospitalist Progress Note ---
Date of Service April 20, 2019 Assessment & Plan (1) SIRS (systemic inflammatory response syndrome): (2) Colitis: Need to R/O sepsis Present on admission with tachycardia and elevated WBC Came from [facility] for abdominal pain/distention associated with urinary retention CT abd/pelvis showed large stool ball in the rectum measuring 9.7 cm in the rectum. There is associated bowel wall thickening and perisigmoid/perirectal edema and fat stranding consistent with inflammatory change. Therefore, this favors a stercoral colitis. Infectious/inflammatory colitis or possibly diverticulitis could also have a similar appearance. Received IV dapto and zosyn in the ER UA showed no indication for UTI WBC trending down to 17 today Blood cx and wound cx pending Continue current IV abx for now Will get a KUB in am (3) Open wound of left heel: ~3 cm wound noted to the left heel, no surrounding erythema or significant drainage Wound culture from 03/27/2019+ for MRSA, patient was placed on Bactrim on 03/31 X-ray showed no indication for osteomyelitis Not sure if pt will be able to get an MRI if needed due to advance dementia Wound care on board Continue daily wound care Wound cx pending Continue current IV abx (4) Constipation: CT abd/pelvisd showed large stool ball in the rectum Received bowel regimen with glycerin suppository x1, MiraLAX and Colace Now has been having recurrent diarrhea Will hold stool laxative for now (5) Dehydration: Continue IV fluid Monitor for signs of fluid overload (6) Tachycardia: Possible related to dehydration HR improves after hydration Will continue monitor (7) Diarrhea: Related to Laxatives Had about 11 episodes of diarrhea Will monitor electrolytes Continue IVF (8) Urinary retention: Possible related to constipation due to the large stool ball in rectum Continue solis cath Continue monitor (9) DVT prophylaxis: -SQ heparin CODE STATUS DNR/DNI Subjective Pt was seen and examined. Lying in bed with no distress. Pt said that she feels ok Daughter at bedside said that pt she seems much better compare to yesterday. Nurse said that she does have multiple episode of diarrhea As per nurse stools soft and now getting watery in the last 2 BM Denies any chest pain, palpitation, dizziness and SOB Physical Exam Physical Exam: General- No acute distress Head- atraumatic Eyes- PERRL, EOMI, ENT- oropharynx clear Neck- supple, no JVD Lungs- diminished breath sound Heart- regular rhythm; no murmur Abdomen- normal bowel sounds, soft, nontender Extremities- no calf tenderness, wound in left heel area with no drainage Neuro- alert, oriented x 3; PERRL, EOMI; no facial palsy; no dysarthria Skin- warm & dry Results & Data Vital Signs (Past 12 Hours) Vital Signs Temp Pulse Pulse Pulse Resp BP Pulse Ox 04/20/19 08:00 103 H 04/20/19 07:23 36.8 C 79 18 102/60 99 04/20/19 04:00 36.8 C 69 16 96/60 L 99 04/19/19 23:38 36.9 C 100 H 19 99/61 L 97 04/19/19 23:32 103 H
[2019-04-20] MEDS ORDERED: DAPTOmycin 200 MG in SYRINGE 0 ML IV SCH (16:00)
[2019-04-21] MEDS: PIPERACILLIN/TAZOBACTAM 3.375 GM in DEXTROSE 5% 100 ML IV SCH ×2 (00:15→08:12)
[2019-04-21] MEDS: ACETAMINOPHEN 325 MG TAB PO PRN ×3 (01:46→21:15)
[2019-04-21] MEDS: SODIUM CHLORIDE 0.9% 1000ML 1,000 ML IV SCH ×2 (03:40→16:02)
[2019-04-21] MEDS: HEPARIN SOD 5,000 UNIT/0.5 ML VIAL SQ SCH ×3 (05:13→21:10)
[2019-04-21 06:19] LABS: Hematocrit (blood only) 33.5 % (37-47); Mean Corpuscular Hgb Conc 32.8 g/dL (32-36); Mean Corpuscular Volume 98.8 fL (80-100); Mean Platelet Volume 9.1 fL (7.4-10.4); Platelet Count 275 K/uL (130-400); RDW Coefficient of Variation 15.8 % (11.5-14.5); RDW Standard Deviation 56.7 fL (36.4-46.3); Red Blood Count 3.39 M/uL (4.2-5.4); White Blood Count 11.94 K/uL (4.8-10.8)
--- NOTE | 2019-04-21 06:53 | Magnetic Resonance Report ---
MR foot LT w/o con CLINICAL HISTORY: 88 years-old Female presenting with MRI of Left heel to r/o osteomyelitis, history of left heel wound, MRSA infection, nonhealing. TECHNIQUE: Multisequence, multiplanar MR imaging of the left foot was performed without the use of in travenous contrast. IV contrast: None. COMPARISON: Plain radiographs from 04/19/2019. FINDINGS: Localizer images: Unremarkable. Due to patient discomfort, not all of the sequences were acquired. This limits diagnostic sensitivity the exam. Furthermore, the sequences that were acquired are degraded by motion artifact to varying d egrees. A marker was placed over the left heel at the site of a visible wound. This is located over the later al and posterior aspect. At this site, there is no significant defect of the cutis appreciated. No ma rkedly infiltrated subcutaneous fat. The subjacent calcaneus is preserved. Bone marrow signal throughout the visualized portion of the left ankle and foot is preserved. No acut e fracture or bony edema. Post traumatic deformity of the distal metaphysis of the fifth metatarsal i s suggested. Visualized tendons and ligaments are grossly intact allowing for image quality and limited sequences. Mild edema of the plantar musculature is suggested, nonspecific. Trace ankle joint effusion. IMPRESSION: Due to patient discomfort, not all of the sequences were acquired. This limits diagnostic sensitivity the exam. Furthermore, the sequences that were acquired are degraded by motion artifact to varying d egrees. Minimal if any soft tissue abnormalities apparent on MR at the site of clinical concern. No MR eviden ce of cellulitis or osteomyelitis. Electronically signed by: Vic Roldan M.D. 04/21/2019 6:51 AM
[2019-04-21 06:56] LABS: BUN Creatinine Ratio 18.4 (10-20); Calcium 7.2 mg/dl (8.5-10.1); Est GFR (African American) 94.7; Est GFR (Non-African American) 81.7; Potassium 3.3 mmol/L (3.5-5.1)
[2019-04-21] MEDS: CALCIUM CARBONATE 1250MG TAB PO SCH ×2 (08:13→20:12)
[2019-04-21] MEDS: CEROVITE ADV FORMULA TAB PO SCH ×2 (08:13→20:12)
[2019-04-21] MEDS: ASPIRIN 81 MG CHEW PO SCH (08:13)
[2019-04-21] MEDS: DOXYCYCLINE HYCLATE 100 MG CAP PO SCH ×2 (13:56→20:12)
--- NOTE | 2019-04-21 15:55 | Wound Consultation ---
Date of Consultation April 21, 2019 Assessment & Plan (1) Stage II pressure ulcer of left heel: Patient with stage II pressure ulcer of her left heel. Continue IV antibiotics. Wound will be dressed with Santyl, 2 x 2's and foam. If symptoms worsen would not hesitate to get MRI to more definitively rule out osteomyelitis. We will continue to follow along. Thank you for allowing me to participate in the care of this patient. Please not hesitate to call with any questions. History of Present Illness Attending Physician: Dayday Clemons MD This is an 88-year-old female with complicated medical history admitted with sepsis secondary to colitis. She was found to have a stage II pressure ulcer of left heel on admission. Culture was positive for MRSA on 429 and patient was started on Bactrim on the third. Patient is a poor historian and denies any pain. However on exam she jumps when you touch it. Allergies Allergy/AdvReac Type Severity Reaction Status Date / Time No Known Allergies Allergy Unverified 04/19/19 14:27 Home Medications Home Medications Medication Instructions Recorded Confirmed Type acetaminophen [Tylenol] 650 mg PO Q4H PRN 04/06/19 04/19/19 History aspirin [Aspirin Childrens] 81 mg PO DAILY 04/06/19 04/19/19 History bisacodyl 10 mg [place] DIRECTED 04/06/19 04/19/19 History bisacodyl [Dulcolax (bisacodyl)] 10 mg [place] DIRECTED PRN 04/06/19 04/19/19 History calcium carbonate 500 mg PO BID 04/06/19 04/19/19 History ergocalciferol (vitamin D2) 50,000 unit PO WK 04/06/19 04/19/19 History [Vitamin D2] oxycodone 5 mg PO Q4H PRN 04/06/19 04/19/19 History sodium phosphates [Fleet Enema] 118 ml [place] DIRECTED PRN 04/06/19 04/19/19 His tory vitamins A,C,[id number]-lnszkd 1 cap PO BID 04/06/19 04/19/19 History [PreserVision AREDS] gvva-[id number]-[id number]-Zn-[id number] 1 packet PO BID 04/06/19 04/19/19 History [ArgiMent AT] Patient History Medical History Closed fracture of left proximal humerus (Chronic) s/p repair Senile dementia (Chronic) IBS (irritable bowel syndrome) (Chronic) Fracture of left hip (Chronic) s/p repair Surgical History History of D&C (Resolved) Family History Unknown Family history non-contributory Noncontributory secondary to patient's advanced age Social History Preferred Language: Maori Communication Ability: Effective Business Services Assistant Required: Yes Beliefs That Will Affect Care: None marital status: / Current Living Situation: [facility] Current Living Situation Comment: alf Feels Safe at Home: Yes Safety Concerns: Feels Safe At This Time Smoking Status: Never smoker Hx Alcohol Use: No Hx Substance Use: No Review of Systems Review of Systems: All systems reviewed & are unremarkable except as noted in HPI & below Physical Exam Constitutional: WD/WN, vitals as above Eyes: PERRL, conjunctivae normal, anicteric sclerae Respiratory: normal respiratory effort, lungs clear to auscultation Cardiovascular: RRR, no murmur, no edema Skin: Wound measuring 1.5 x 1.6 x 0.2 cm. Wound is covered with thick fibrinous slough. Periwound is intact without inflammation. Neurologic: awake and + confused Psychiatric: Orientation: oriented to person and cooperative Results & Data Vital Signs (Past 12 Hours) Vital Signs Temp Pulse Pulse Pulse Resp BP Pulse Ox 04/21/19 12:00 36.5 C 78 18 113/57 L 100 04/21/19 07:14 78 04/21/19 07:00 36.3 C L 86 16 108/58 L 96 04/21/19 04:39 36.4 C L 91 H 19 100/54 L 92
[2019-04-21] MEDS: COLLAGENASE OINT 30 GM TUBE EXT SCH (16:02)
[2019-04-21] MEDS ORDERED: POTASSIUM CHLORIDE PWD 20 MEQ PACK PO ONE (16:15)
--- NOTE | 2019-04-21 19:08 | Hospitalist Progress Note ---
Date of Service April 21, 2019 Assessment & Plan (1) SIRS (systemic inflammatory response syndrome): (2) Colitis: Present on admission with tachycardia and elevated WBC Came from [facility] for abdominal pain/distention associated with urinary retention CT abd/pelvis showed large stool ball in the rectum measuring 9.7 cm in the rectum. There is associated bowel wall thickening and perisigmoid/perirectal edema and fat stranding consistent with inflammatory change. Therefore, this favors a stercoral colitis. Infectious/inflammatory colitis or possibly diverticulitis could also have a similar appearance. Received IV dapto and zosyn in the ER UA showed no indication for UTI WBC trending down to normal Blood cx no growth Wound cx positive for corynebacterium D/C IV abx Will get a KUB in am On Doxycycline oral (3) Open wound of left heel: ~3 cm wound noted to the left heel, no surrounding erythema or significant drainage Wound culture from 03/27/2019+ for MRSA, patient was placed on Bactrim on 03/31 X-ray showed no indication for osteomyelitis MRI left foot showed No MR evidence of cellulitis or osteomyelitis. Wound care on board Continue daily wound care Wound cx positive for corynebacterium IV abx d/c Continue Doxycy (4) Constipation: CT abd/pelvisd showed large stool ball in the rectum Received bowel regimen with glycerin suppository x1, MiraLAX and Colace Now has been having recurrent diarrhea Will hold stool laxative for now will get a KUB in am (5) Dehydration: Continue gentle IV fluid Monitor for signs of fluid overload (6) Tachycardia: Possible related to dehydration HR improves after hydration Will continue monitor (7) Diarrhea: Related to Laxatives Diarrhea improves If diarrhea becomes watery, please check for Cdiff Will monitor electrolytes Continue gentle IVF (8) Urinary retention: Possible related to constipation due to the large stool ball in rectum Continue solis cath Continue monitor (9) DVT prophylaxis: -SQ heparin CODE STATUS DNR/DNI Subjective Pt was seen and examined Lying in bed with no distress with daughter at bedside Continue to have diarrhea but improves as per nurse Denies any chest pain, palpitation and SOB Physical Exam Physical Exam: General- No acute distress Head- atraumatic Eyes- PERRL, EOMI, ENT- oropharynx clear Neck- supple, no JVD Lungs- diminished breath sound Heart- regular rhythm; no murmur Abdomen- normal bowel sounds, +tenderness Extremities- no calf tenderness, wound in left heel area with no drainage Neuro- alert, oriented, PERRL, EOMI; no facial palsy; no dysarthria Skin- warm & dry Results & Data Vital Signs (Past 12 Hours) Vital Signs Temp Pulse Pulse Resp BP Pulse Ox 04/21/19 12:00 36.5 C 78 18 113/57 L 100 04/21/19 07:14 78
[2019-04-22] MEDS: SODIUM CHLORIDE 0.9% 1000ML 1,000 ML IV SCH ×2 (04:14→17:12)
[2019-04-22] MEDS: HEPARIN SOD 5,000 UNIT/0.5 ML VIAL SQ SCH ×3 (05:26→20:00)
[2019-04-22 07:06] LABS: Hematocrit (blood only) 35.8 % (37-47); Hemoglobin 12.2 g/dL (12.0-16.0); Mean Corpuscular Hgb Conc 34.1 g/dL (32-36); Mean Corpuscular Volume 96.8 fL (80-100); Mean Platelet Volume 9.3 fL (7.4-10.4); Platelet Count 312 K/uL (130-400); RDW Coefficient of Variation 15.3 % (11.5-14.5); White Blood Count 9.76 K/uL (4.8-10.8)
[2019-04-22] MEDS: DOXYCYCLINE HYCLATE 100 MG CAP PO SCH ×2 (08:21→20:00)
[2019-04-22] MEDS: COLLAGENASE OINT 30 GM TUBE EXT SCH (08:21)
[2019-04-22] MEDS: CALCIUM CARBONATE 1250MG TAB PO SCH ×2 (08:22→20:00)
[2019-04-22] MEDS: ASPIRIN 81 MG CHEW PO SCH (08:22)
[2019-04-22] MEDS: CEROVITE ADV FORMULA TAB PO SCH ×2 (08:22→20:00)
[2019-04-22 09:18] LABS: BUN Creatinine Ratio 13.1 (10-20); Calcium 7.8 mg/dl (8.5-10.1); Creatinine Clr Calc Pharmacy 62.8 ml/min; Est GFR (African American) 98.2; Est GFR (Non-African American) 84.7; Potassium 3.4 mmol/L (3.5-5.1)
[2019-04-22] MEDS ORDERED: POTASSIUM CHLORIDE 10 MEQ TABCR PO STA (10:32)
--- NOTE | 2019-04-22 11:24 | XRay Report ---
XR KUB/Abdomen 1 view CLINICAL HISTORY: abd pain pain COMPARISON STUDY: No previous studies for comparison. FINDINGS: The soft tissues, psoas shadows, renal outlines and intestinal gas pattern appear normal. T here is no evidence for bowel obstruction. No abnormal abdominal calcifications are seen. Mild nonobs tructive ileus IMPRESSION: Mild nonobstructive ileus. The above report was generated using voice recognition software. It may contain grammatical, syntax or spelling errors. Electronically signed by: Xu Palomo M.D. 04/22/2019 11:22 AM
--- NOTE | 2019-04-22 18:20 | Hospitalist Progress Note ---
Date of Service April 22, 2019 Assessment & Plan (1) SIRS (systemic inflammatory response syndrome): (2) Colitis: Present on admission with tachycardia and elevated WBC Came from [facility] for abdominal pain/distention associated with urinary retention CT abd/pelvis showed large stool ball in the rectum measuring 9.7 cm in the rectum. There is associated bowel wall thickening and perisigmoid/perirectal edema and fat stranding consistent with inflammatory change. Therefore, this favors a stercoral colitis. Infectious/inflammatory colitis or possibly diverticulitis could also have a similar appearance. Received IV dapto and zosyn in the ER UA showed no indication for UTI WBC trending down to normal Blood cx no growth IV antibiotic discontinued KUB done today showed Mild nonobstructive ileus. Continue conservative management Will change diet to full liquid Continue pain control Hold for any further abx for now, but if pt gets worst will resume abx (3) Open wound of left heel: ~3 cm wound noted to the left heel, no surrounding erythema or significant drainage Wound culture from 03/27/2019+ for MRSA, patient was placed on Bactrim on 03/31 X-ray showed no indication for osteomyelitis MRI left foot showed No MR evidence of cellulitis or osteomyelitis. Wound care on board Continue daily wound care Wound cx positive for corynebacterium IV abx discontinued Continue Doxycycline (4) Constipation: CT abd/pelvisd showed large stool ball in the rectum Received bowel regimen with glycerin suppository x1, MiraLAX and Colace Now has been having recurrent diarrhea Will hold stool laxative for now KUB showed Mild nonobstructive ileus. (5) Dehydration: Continue gentle IV fluid Monitor for signs of fluid overload (6) Tachycardia: Possible related to dehydration HR improves after hydration Will continue monitor (7) Diarrhea: Related to Laxatives Diarrhea improves If diarrhea becomes watery, please check for Cdiff Will monitor electrolytes Continue gentle IVF (8) Urinary retention: Possible related to constipation due to the large stool ball in rectum Continue solis cath Continue monitor (9) DVT prophylaxis: -SQ heparin CODE STATUS DNR/DNI Disposition Once medically stable Subjective Pt was seen and examined Lying in bed with no distress with family member at bedside Pt said that she does not have any pain, but when I palpated her abdomen she said that it was tender Diarrhea improves Denies any chest pain, palpitation and SOB Physical Exam Physical Exam: General- No acute distress Head- atraumatic Eyes- PERRL, EOMI, ENT- oropharynx clear Neck- supple, no JVD Lungs- diminished breath sound Heart- regular rhythm; no murmur Abdomen- normal bowel sounds, +tenderness Extremities- no calf tenderness, wound in left heel area with no drainage Neuro- alert, oriented, PERRL, EOMI; no facial palsy; no dysarthria Skin- warm & dry Results & Data Vital Signs (Past 12 Hours) Vital Signs Temp Pulse Pulse Pulse Resp BP Pulse Ox 04/22/19 16:30 36.3 C L 94 H 20 106/65 98 04/22/19 11:56 36.3 C L 84 18 143/87 H 98 04/22/19 07:29 36.5 C 96 H 18 131/80 94 04/22/19 07:00 86
[2019-04-22] MEDS: ACETAMINOPHEN 325 MG TAB PO PRN (18:38)
[2019-04-23] MEDS: HEPARIN SOD 5,000 UNIT/0.5 ML VIAL SQ SCH ×3 (05:11→19:47)
[2019-04-23] MEDS: SODIUM CHLORIDE 0.9% 1000ML 1,000 ML IV SCH ×2 (05:11→19:46)
[2019-04-23 05:56] LABS: Hematocrit (blood only) 36.7 % (37-47); Mean Corpuscular Hgb Conc 32.7 g/dL (32-36); Mean Corpuscular Volume 98.1 fL (80-100); Mean Platelet Volume 9.4 fL (7.4-10.4); Platelet Count 333 K/uL (130-400); RDW Coefficient of Variation 15.2 % (11.5-14.5); RDW Standard Deviation 54.1 fL (36.4-46.3); Red Blood Count 3.74 M/uL (4.2-5.4); White Blood Count 8.72 K/uL (4.8-10.8)
[2019-04-23 06:05] LABS: Partial Thromboplastin Ratio 1.2; Partial Thromboplastin Time 31.5 Seconds (21.0-31.0)
[2019-04-23 06:32] LABS: BUN Creatinine Ratio 10.5 (10-20); Calcium 7.7 mg/dl (8.5-10.1); Creatinine Clr Calc Pharmacy 70.4 ml/min; Est GFR (African American) 101.5; Est GFR (Non-African American) 87.6; Potassium 3.2 mmol/L (3.5-5.1)
[2019-04-23] MEDS ORDERED: POTASSIUM CHLORIDE 20 MEQ TABCR PO STA (08:12)
[2019-04-23] MEDS: CEROVITE ADV FORMULA TAB PO SCH ×2 (08:34→19:47)
[2019-04-23] MEDS: POTASSIUM CHLORIDE PWD 20 MEQ PACK PO SCH (08:35)
[2019-04-23] MEDS: DOXYCYCLINE HYCLATE 100 MG CAP PO SCH ×2 (08:35→19:46)
[2019-04-23] MEDS: ASPIRIN 81 MG CHEW PO SCH (08:35)
[2019-04-23] MEDS: CALCIUM CARBONATE 1250MG TAB PO SCH ×2 (08:35→19:47)
[2019-04-23] MEDS: COLLAGENASE OINT 30 GM TUBE EXT SCH (14:03)
--- NOTE | 2019-04-23 16:31 | Hospitalist Progress Note ---
Date of Service April 23, 2019 Assessment & Plan (1) SIRS (systemic inflammatory response syndrome): (2) Colitis: Present on admission with tachycardia and elevated WBC Came from [facility] for abdominal pain/distention associated with urinary retention CT abd/pelvis showed large stool ball in the rectum measuring 9.7 cm in the rectum. There is associated bowel wall thickening and perisigmoid/perirectal edema and fat stranding consistent with inflammatory change. Therefore, this favors a stercoral colitis. Infectious/inflammatory colitis or possibly diverticulitis could also have a similar appearance. Received IV dapto and zosyn in the ER UA showed no indication for UTI WBC trending down to normal Blood cx no growth IV antibiotic discontinued KUB done today showed Mild nonobstructive ileus. Continue conservative management Will change diet to full liquid Continue pain control Hold for any further abx for now, but if pt gets worst will resume abx 04/23 Tolerated full liquid diet No pain on abdomen today with palpation Will advance diet to soft tomorrow Clinically improves Will dexcrease IVF (3) Open wound of left heel: ~3 cm wound noted to the left heel, no surrounding erythema or significant drainage Wound culture from 03/27/2019+ for MRSA, patient was placed on Bactrim on 03/31 X-ray showed no indication for osteomyelitis MRI left foot showed No MR evidence of cellulitis or osteomyelitis. Wound care on board Continue daily wound care Wound cx positive for corynebacterium IV abx discontinued Continue Doxycycline (4) Constipation: CT abd/pelvisd showed large stool ball in the rectum Received bowel regimen with glycerin suppository x1, MiraLAX and Colace Now has been having recurrent diarrhea Will hold stool laxative for now KUB showed Mild nonobstructive ileus. Stable (5) Dehydration: Will d/c IVF Monitor for signs of fluid overload (6) Tachycardia: Possible related to dehydration HR improves after hydration No arrhythmia on tele monitor (7) Diarrhea: Related to Laxatives Only had 1 lose BM today Diarrhea improves Will monitor electrolytes COnsider to d/c IVF (8) Urinary retention: Possible related to constipation due to the large stool ball in rectum Continue solis cath Continue monitor Hypokalemia K replaced Monitor BMP (9) DVT prophylaxis: -SQ heparin CODE STATUS DNR/DNI Disposition Once medically stable Subjective Pt was seen and examined Lying in bed with no distress Pt said that she feels much better She said that she does not have any abdominal pain Nurse said that she only had 1 BM today Denies any chest pain, palpitation, dizziness and SOB Physical Exam Physical Exam: General- No acute distress Head- atraumatic Eyes- PERRL, EOMI, ENT- oropharynx clear Neck- supple, no JVD Lungs- diminished breath sound Heart- regular rhythm; no murmur Abdomen- normal bowel sounds, No tenderness Extremities- no calf tenderness, wound in left heel area with no drainage Neuro- alert, oriented, PERRL, EOMI; no facial palsy; no dysarthria Skin- warm & dry Results & Data Vital Signs (Past 12 Hours) Vital Signs Temp Pulse Pulse Pulse Resp BP Pulse Ox 04/23/19 16:00 36.6 C 90 18 141/76 H 98 04/23/19 14:39 84 04/23/19 12:15 36.6 C 82 20 147/91 H 98 04/23/19 08:10 36.5 C 104 H 20 132/76 97 04/23/19 07:00 83 04/23/19 04:28 36.5 C 94 H 20 148/85 H 99
[2019-04-24] MEDS: HEPARIN SOD 5,000 UNIT/0.5 ML VIAL SQ SCH ×3 (05:48→21:12)
[2019-04-24 06:55] LABS: Partial Thromboplastin Ratio 1.1
[2019-04-24 07:27] LABS: BUN Creatinine Ratio 10.9 (10-20); Calcium 7.3 mg/dl (8.5-10.1); Creatinine Clr Calc Pharmacy 76.3 ml/min; Est GFR (African American) 104.5; Est GFR (Non-African American) 90.2; Potassium 3.7 mmol/L (3.5-5.1)
[2019-04-24] MEDS: CALCIUM CARBONATE 1250MG TAB PO SCH ×2 (08:34→21:08)
[2019-04-24] MEDS: ASPIRIN 81 MG CHEW PO SCH (08:34)
[2019-04-24] MEDS: DOXYCYCLINE HYCLATE 100 MG CAP PO SCH ×2 (08:34→21:08)
[2019-04-24] MEDS: CEROVITE ADV FORMULA TAB PO SCH ×2 (08:35→21:08)
[2019-04-24] MEDS: COLLAGENASE OINT 30 GM TUBE EXT SCH (08:36)
[2019-04-24] MEDS: POTASSIUM CHLORIDE PWD 20 MEQ PACK PO SCH (08:36)
[2019-04-24] MEDS: SODIUM CHLORIDE 0.9% 1000ML 1,000 ML IV SCH (16:04)
--- NOTE | 2019-04-24 18:33 | Hospitalist Progress Note ---
Date of Service April 24, 2019 Assessment & Plan (1) SIRS (systemic inflammatory response syndrome): (2) Colitis: Present on admission with tachycardia and elevated WBC Came from [facility] for abdominal pain/distention associated with urinary retention CT abd/pelvis showed large stool ball in the rectum measuring 9.7 cm in the rectum. There is associated bowel wall thickening and perisigmoid/perirectal edema and fat stranding consistent with inflammatory change. Therefore, this favors a stercoral colitis. Infectious/inflammatory colitis or possibly diverticulitis could also have a similar appearance. Received IV dapto and zosyn in the ER UA showed no indication for UTI WBC trending down to normal Blood cx no growth IV antibiotic discontinued KUB done today showed Mild nonobstructive ileus. Continue conservative management Will change diet to full liquid Continue pain control Hold for any further abx for now, but if pt gets worst will resume abx 04/24 Diet advanced to soft diet and tolerated it No pain on abdomen today with palpation Clinically improves IVF d/c (3) Open wound of left heel: ~3 cm wound noted to the left heel, no surrounding erythema or significant drainage Wound culture from 03/27/2019+ for MRSA, patient was placed on Bactrim on 03/31 X-ray showed no indication for osteomyelitis MRI left foot showed No MR evidence of cellulitis or osteomyelitis. Wound care on board Continue daily wound care Wound cx positive for corynebacterium IV abx discontinued Continue Doxycycline (4) Constipation: CT abd/pelvisd showed large stool ball in the rectum Received bowel regimen with glycerin suppository x1, MiraLAX and Colace Now has been having recurrent diarrhea Will hold stool laxative for now KUB showed Mild nonobstructive ileus. Stable (5) Dehydration: Will d/c IVF Monitor for signs of fluid overload (6) Tachycardia: Possible related to dehydration HR improves after hydration No arrhythmia on tele monitor (7) Diarrhea: Related to Laxatives Only had 1 lose BM today Diarrhea improves Will monitor electrolytes d/c IVF (8) Urinary retention: Possible related to constipation due to the large stool ball in rectum Continue solis cath Continue monitor Hypokalemia K replaced Monitor BMP (9) DVT prophylaxis: SQ heparin CODE STATUS DNR/DNI Disposition possible discharge tomorrow once bed available Subjective Pt was seen and examined Lying in bed with no distress Pt said that she feels fine today She had 2 bowel movement today Denies any chest pain, palpitation and SOB Physical Exam Physical Exam: General- No acute distress Head- atraumatic Eyes- PERRL, EOMI, ENT- oropharynx clear Neck- supple, no JVD Lungs- diminished breath sound Heart- regular rhythm; no murmur Abdomen- normal bowel sounds, No tenderness Extremities- no calf tenderness, wound in left heel area with no drainage Neuro- alert, oriented, PERRL, EOMI; no facial palsy; no dysarthria Skin- warm & dry Results & Data Vital Signs (Past 12 Hours) Vital Signs Temp Pulse Pulse Pulse Resp BP BP 04/24/19 15:20 36.2 C L 92 H 18 137/79 04/24/19 12:16 36.5 C 88 19 130/84 04/24/19 07:30 36.4 C L 89 16 149/80 H 04/24/19 07:00 94 H Pulse Ox 04/24/19 15:20 96 04/24/19 12:16 96 04/24/19 07:30 95 04/24/19 07:00
[2019-04-25] MEDS: HEPARIN SOD 5,000 UNIT/0.5 ML VIAL SQ SCH ×3 (04:59→21:56)
[2019-04-25 06:57] LABS: Hematocrit (blood only) 35.7 % (37-47); Hemoglobin 12.2 g/dL (12.0-16.0); Mean Corpuscular Hgb Conc 34.2 g/dL (32-36); Mean Corpuscular Volume 94.9 fL (80-100); Mean Platelet Volume 8.9 fL (7.4-10.4); Platelet Count 357 K/uL (130-400); RDW Coefficient of Variation 15.2 % (11.5-14.5); RDW Standard Deviation 52.3 fL (36.4-46.3); Red Blood Count 3.76 M/uL (4.2-5.4)
[2019-04-25 07:06] LABS: Partial Thromboplastin Ratio 1.2; Partial Thromboplastin Time 31.9 Seconds (21.0-31.0)
[2019-04-25] MEDS: ACETAMINOPHEN 325 MG TAB PO PRN (08:33)
[2019-04-25] MEDS: DOXYCYCLINE HYCLATE 100 MG CAP PO SCH ×2 (08:34→20:10)
[2019-04-25] MEDS: CALCIUM CARBONATE 1250MG TAB PO SCH ×2 (08:34→20:10)
[2019-04-25] MEDS: CEROVITE ADV FORMULA TAB PO SCH ×2 (08:34→20:09)
[2019-04-25] MEDS: POTASSIUM CHLORIDE PWD 20 MEQ PACK PO SCH (08:35)
[2019-04-25] MEDS: ASPIRIN 81 MG CHEW PO SCH (08:35)
[2019-04-25] MEDS: METOPROLOL TARTRATE 25 MG TAB PO SCH ×2 (10:01→20:09)
--- NOTE | 2019-04-25 10:50 | Palliative Care Consultation ---
Date of Consultation April 25, 2019 Assessment & Plan (1) Palliative care encounter: This is an 88-year-old female who is a resident from [facility], who was transferred to the hospital for evaluation of urinary retention requiring straight catheterization and abdominal distention. The patient did have an elevated WBC of 20.37, now 10.6. A CT abdomen/pelvis revealed a 9.7 cm sized impacting stool within the sigmoid colon and rectum, which has resolved. It is suspected that the urinary retention was related to the constipation that has been resolved. The patient has some unreliability related to her background; however, is able to have meaningful conversation. Additionally, the patient was noted to have a left wound on her heel measuring 3cm which is MRSA +. The patients, daughter, Jana, requested a Palliative Care Consult to discuss usp goals and Dr. Clemons placed a consult. -I met with the patient in her room. She is awake, alert and oriented to self and location. Pt can have meaningful conversation with goal direction, but unable to recall events of her hospitalization. -I believe most of the patient's acute needs for her hospitalization are resolving as her abdominal pain, constipation and urinary retention have resolved. -The patient's daughter, Jana, requested a palliative care consult to discuss usp goals. -Patient is a resident of [facility] and has a goal to return there. I do believe based on my exam, that she would benefit from SNF prior to return to [facility] if able - but may require transition to SNF permanently vs [facility] with Hospice. -Pt does have dementia, and a left heel pressure ulcer that is MRSA + and cultures showing (+) for Corynebacterium. Per nursing, she has been refusing PT/OT. -Her FAST score would be 6b/6c indicating moderately severe dementia and depending on her wound healing, could be qualifying factors, but would need a Hospice evaluation. -I discussed with wound care - her ulcer was not present on last admission in December and is relatively stable with some drainage, but nothing indicating infection or non-healing -I did call the patients daughterJana and then met with her outside of the patient's room. She would like the patient to return to [facility] with Hospice. -Ida, from Case Management was involved for a portion of the conversation and discussed agencies. At this time, Jana stated she has talked to [facility], but would like to go with [facility], which Ida will put a referral in for. Logistics regarding payers, etc. was discussed directly between Jana and Case management. -I did complete a POLST form with Jana, indicating DNR, limited intervention of return to the hospital, trial abx and no artificial hydration or feeding tube. -PPS: 50% -We will continue to assist with decision making as needed throughout her hospitalization. (2) Open wound of left heel: (3) Colitis: (4) Senile dementia: Dementia behavioral disturbance: without behavioral disturbance Q ualified Code(s): F03.90 - Unspecified dementia without behavioral disturbance Supervising Physician Co-Signing Physician Notes Chart reviewed, patient seen and examined. Patient's daughter at bedside. PE: Patient resting, no acute distress HEENT: EOMI Respirations: Unlabored CV: Regular rate Abdomen: Soft nontender :Solis catheter in place Neuro: Alert. Agree with above note, assessment and plan as per FELICE Rangel. Discussed with daughter strategies to improve her care at [facility] Will continue to follow and assist with medical decision making History of Present Illness Reason for Consultation: Goals of Care Requesting Physician: Dr. Clemons Attending Physician: Dayday Clemons MD History of Present Illness This is an 88-year-old female who is a resident from [facility], who was transfered to the hospital for eval of urinary retention requiring straight catheterization and abdominal distention. The patient did have an elevated WBC of 20.37, now 10.6. A CT abdomen/pelvis revealed a 9.7 cm sized impacting stool within the sigmoid colon and rectum, which has resolved. It is suspected that the urinary retention was related to the constipation that has been resolved. The patient has some unreliability related to her background; however, is able to have meaningful conversation. Additionally, the patient was noted to have a left wound on her heel measuring 3cm which is MRSA +. 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 Clemons placed a consult. Please see Assessment and Plan for further details. Thank you kindly for involving the Palliative Care Service. We will follow accordingly when daughter is available for conversation. Allergies Allergy/AdvReac Type Severity Reaction Status Date / Time No Known Allergies Allergy Unverified 04/19/19 14:27 Home Medications Home Medications Medication Instructions Recorded Confirmed Type acetaminophen [Tylenol] 650 mg PO Q4H PRN 04/06/19 04/19/19 History aspirin [Aspirin Childrens] 81 mg PO DAILY 04/06/19 04/19/19 History bisacodyl 10 mg TN DIRECTED 04/06/19 04/19/19 History bisacodyl [Dulcolax (bisacodyl)] 10 mg TN DIRECTED PRN 04/06/19 04/19/19 History calcium carbonate 500 mg PO BID 04/06/19 04/19/19 History ergocalciferol (vitamin D2) 50,000 unit PO WK 04/06/19 04/19/19 History [Vitamin D2] oxycodone 5 mg PO Q4H PRN 04/06/19 04/19/19 History sodium phosphates [Fleet Enema] 118 ml TN DIRECTED PRN 04/06/19 04/19/19 History vitamins A,C,[id number]-eoys-[id number] 1 cap PO BID 04/06/19 04/19/19 History [PreserVision AREDS] [id number]-[id number] 1 packet PO BID 04/06/19 04/19/19 History [ArgiMent AT] Patient History Medical History Closed fracture of left proximal humerus (Chronic) s/p repair Senile dementia (Chronic) IBS (irritable bowel syndrome) (Chronic) Fracture of left hip (Chronic) s/p repair Surgical History History of D&C (Resolved) Family History Unknown Family history non-contributory Noncontributory secondary to patient's advanced age Social History Preferred Language: Setswana Communication Ability: Effective 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 Pt reports (+) flatulance ) Physical Exam Physical Exam: General: Pt lying in bed, awake when I enetered in NAD HEENT: Head normocephalic, atraumatic, moist mucus membranes CV: irregularly irregular, rate controlled, (-) M/G/R, (-) edema Resp: Lungs CTA, diminished in bases. Pt on RA GI: Abdomen S/NT/ND, (+) flatulance LBM: 04/24. (+) sips : indwelling solis catheter, clear yellow urine Skin: Left heel pressure ulcer, appears punched out ? arterial? Otherwise, C/D/I Musc: Left limb restriction band. UE B/L 03/03, LE B/L 03/03. Pt does have limb restriction band on right arm from previous unhealed fracture Psych: Pt smiling and in good spirits Results & Data Vital Signs (Past 12 Hours) Vital Signs Temp Pulse Pulse Pulse Resp BP Pulse Ox 04/25/19 07:30 36.4 C L 103 H 16 101/67 95 04/25/19 07:00 89 04/25/19 04:29 36.4 C L 78 17 128/73 95 04/25/19 03:16 88 04/25/19 00:00 36.5 C 109 H 20 127/73 96 Time Spent Midlevel Total time spent 70 minutes with > 50% of that time spent reviewing the chart, assessing the patient, discussing with IDT and phoning patient daughter. Attending Spent 20 minutes in addition to the above 70 minutes by FELICE Rangel for a total of 90 minutes with greater than 50% of the time spent at bedside discussing goals of care
[2019-04-25] MEDS: COLLAGENASE OINT 30 GM TUBE EXT SCH (11:31)
--- NOTE | 2019-04-25 20:25 | Hospitalist Progress Note ---
Date of Service April 25, 2019 Assessment & Plan (1) SIRS (systemic inflammatory response syndrome): (2) Colitis: Present on admission with tachycardia and elevated WBC Came from [facility] for abdominal pain/distention associated with urinary retention CT abd/pelvis showed large stool ball in the rectum measuring 9.7 cm in the rectum. There is associated bowel wall thickening and perisigmoid/perirectal edema and fat stranding consistent with inflammatory change. Therefore, this favors a stercoral colitis. Infectious/inflammatory colitis or possibly diverticulitis could also have a similar appearance. Received IV dapto and zosyn in the ER UA showed no indication for UTI WBC trending down to normal Blood cx no growth IV antibiotic discontinued KUB done today showed Mild nonobstructive ileus. Continue conservative management Will change diet to full liquid Continue pain control Hold for any further abx for now, but if pt gets worst will resume abx 04/25 Diet advanced to soft diet and tolerated it No pain on abdomen today with palpation Pt will transition to hospice when discharge to [facility] Hospice team will come tomorrow to have meeting with daughter before discharge Resolved (3) Open wound of left heel: ~3 cm wound noted to the left heel, no surrounding erythema or significant drainage Wound culture from 03/27/2019+ for MRSA, patient was placed on Bactrim on 03/31 X-ray showed no indication for osteomyelitis MRI left foot showed No MR evidence of cellulitis or osteomyelitis. Wound care on board Continue daily wound care Wound cx positive for corynebacterium IV abx discontinued Continue Doxycycline (4) Constipation: CT abd/pelvisd showed large stool ball in the rectum Received bowel regimen with glycerin suppository x1, MiraLAX and Colace Now has been having recurrent diarrhea Will hold stool laxative for now KUB showed Mild nonobstructive ileus. Stable (5) Dehydration: Will d/c IVF Monitor for signs of fluid overload (6) Tachycardia: Possible related to dehydration HR improves after hydration tele monitor showed burst afib/PAC Metoprolol 12.5 mg BID adding (7) Diarrhea: Related to Laxatives Diarrhea improved (8) Urinary retention: Possible related to constipation due to the large stool ball in rectum Will remove solis cath in am Continue monitor Hypokalemia K stable Monitor BMP (9) DVT prophylaxis: SQ heparin CODE STATUS DNR/DNI Disposition possible discharge tomorrow to [facility] and transition to hospice Subjective Pt was seen and examined Lying in bed with no distress with daughter at bedside Pt looks much better today Her diarrhea improved Telemonitor showed burst afib/PAC Denies any new complaints Physical Exam Physical Exam: General- No acute distress Head- atraumatic Eyes- PERRL, EOMI, ENT- oropharynx clear Neck- supple, no JVD Lungs- diminished breath sound Heart- regular rhythm; no murmur Abdomen- normal bowel sounds, No tenderness Extremities- no calf tenderness, wound in left heel area with no drainage Neuro- alert, oriented, PERRL, EOMI; no facial palsy; no dysarthria Skin- warm & dry Results & Data Vital Signs (Past 12 Hours) Vital Signs Temp Pulse Pulse Resp BP BP Pulse Ox 04/25/19 19:29 36.2 C L 93 H 20 114/70 93 04/25/19 17:42 36.6 C 102 H 18 109/71 92 04/25/19 14:20 84 04/25/19 12:13 36.4 C L 79 16 134/84 97
[2019-04-26] MEDS: HEPARIN SOD 5,000 UNIT/0.5 ML VIAL SQ SCH ×2 (06:16→14:04)
[2019-04-26 06:17] LABS: Partial Thromboplastin Ratio 1.2; Partial Thromboplastin Time 33.6 Seconds (21.0-31.0)
[2019-04-26] MEDS: CEROVITE ADV FORMULA TAB PO SCH (09:33)
[2019-04-26] MEDS: CALCIUM CARBONATE 1250MG TAB PO SCH (09:33)
[2019-04-26] MEDS: COLLAGENASE OINT 30 GM TUBE EXT SCH ×2 (09:33→12:30)
[2019-04-26] MEDS: ASPIRIN 81 MG CHEW PO SCH (09:33)
[2019-04-26] MEDS: POTASSIUM CHLORIDE PWD 20 MEQ PACK PO SCH (09:33)
[2019-04-26] MEDS: DOXYCYCLINE HYCLATE 100 MG CAP PO SCH (09:34)
--- NOTE | 2019-04-26 10:36 | Discharge Summary ---
Date of Service April 26, 2019 Admission HPI Per Admitting Provider 88-year-old female who was sent to the ED from [facility] for evaluation of abdominal distention and urinary retention. Yesterday, patient developed urinary retention and has required several straight catheterizations. She also has developed abdominal distention. Labs were obtained that showed a WBC 19 K, and patient was sent to the ED for further evaluation. Patient has underlying dementia and history is somewhat unobtainable from her. Daughter is the bedside who reports that last normal bowel movement was 2 days ago. Patient does have loose stools at baseline secondary to underlying IBS. There is some mild abdominal pain however no nausea or vomiting. Patient denies chest pain shortness of breath. No lightheadedness, dizziness, diaphoresis, syncopal events. In the ED, labs showed WBC 20 K, initial heart rate in the 120s to 130s, BP borderline low at times (chronic per daughter). CT ABD/pelvis is showing large amount stool within the sigmoid colon and rectum with a large stool ball measuring 9.7 cm in the rectum. There is associated bowel wall thickening and perisigmoid/perirectal edema and fat stranding consistent with inflammatory change favoring a stercoral colitis. Infectious/inflammatory colitis or possibly diverticulitis could also have a similar appearance. She was given IVF, IV daptomycin, IV Zosyn. Admission Exam Per Admitting Provider Constitutional: WD/WN, vitals as above Eyes: PERRL, conjunctivae normal, anicteric sclerae ENMT: Ears: no external ear abnormality Nose: no external nose abnormality Mouth: + dry oral mucous membranes (Tongue extremely dry) Respiratory: normal respiratory effort, lungs clear to auscultation Cardiovascular: Rate/Rhythm: regular rhythm and + tachycardic Vessels: normal peripheral pulses Extremities: no edema Gastrointestinal (Abdomen): Inspection/Auscultation: + abdomen distended and normal bowel sounds Percussion/Palpation: abdomen soft; abdomen nontender and no hepatosplenomegaly Musculoskeletal: no cyanosis or clubbing, extremities motor strength 5/5 Skin: no rashes, warm and dry + wound (Left heel, ~3 cm in diameter, no surrounding erythema or significant drainage noted, granulation tissue present) Neurologic: PERRL, EOMI, accommodation nl, no face palsy, no dysarthria Psychiatric: Orientation: alert, oriented to person and oriented to place; + not oriented to time Cognition: + recent memory not intact Insight: + limited insight Genitourinary: Solis in place draining tea colored urine Principal Diagnosis Sepsis Urine retention Dementia Infectious Colitis Heel Wound Left IBS Constipation Discharge Data Allergies Allergy/AdvReac Type Severity Reaction Status Date / Time No Known Allergies Allergy Unverified 04/19/19 14:27 Consultations 04/19/19 15:57 ED Decision to Admit Stat 04/19/19 18:04 Consult Case Management - Discharge Planning Routine 04/19/19 18:20 Consult Wound Care Provider Routine 04/21/19 15:45 Consult Palliative Care Routine Ordered Studies 04/19/19 13:32 CT abd pelvis wo con Stat 04/21/19 00:05 MR foot LT w/o con Routine Hospital Course (1) SIRS (systemic inflammatory response syndrome): (2) Colitis: Present on admission with tachycardia and elevated WBC Came from [facility] for abdominal pain/distention associated with urinary retention CT abd/pelvis showed large stool ball in the rectum measuring 9.7 cm in the rectum. There is associated bowel wall thickening and perisigmoid/perirectal edema and fat stranding consistent with inflammatory change. Therefore, this favors a stercoral colitis. Infectious/inflammatory colitis or possibly diverticulitis could also have a similar appearance. Received IV dapto and zosyn in the ER UA showed no indication for UTI WBC trending down to normal Blood cx no growth IV antibiotic discontinued KUB today showed Mild nonobstructive ileus. Continue conservative management ADAT Continue pain control No pain on abdomen today with palpation Pt will transition to hospice when discharged to [facility] Hospice team today to have meeting with daughter before discharge (3) Open wound of left heel: ~3 cm wound noted to the left heel, no surrounding erythema or significant drainage Wound culture from 03/27/2019+ for MRSA, patient was placed on Bactrim on 03/31 X-ray showed no indication for osteomyelitis MRI left foot showed No MR evidence of cellulitis or osteomyelitis. Wound care on board Continue daily wound care Wound cx positive for corynebacterium Continue Doxycycline (4) Constipation: CT abd/pelvis showed large stool ball in the rectum Received bowel regimen with glycerin suppository x1, MiraLAX and Colace Now has been having recurrent diarrhea Will hold stool laxative for now KUB showed Mild nonobstructive ileus. Stable (5) Dehydration: Resolved (6) Tachycardia: Possible related to dehydration HR improves after hydration tele monitor showed burst afib/PAC Metoprolol 12.5 mg BID added (7) Diarrhea: Related to Laxatives Diarrhea improved (8) Urinary retention: Possible related to constipation due to the large stool ball in rectum Keep in solis on DC for easier care, Add Vit C Hypokalemia K stable Monitor BMP (9) DVT prophylaxis: CODE STATUS DNR/DNI Disposition Discharge today to [facility] and transition to hospice ROS-Poor Historian, No Headache, No Visual Changes, No Nausea, No Vomiting, No Fever, No Chills, No Neck Pain or Stiffness, No Chest Pain, No Palpitations, No SOB, No LEONARDO, No Cough, No Sputum, No Wheezing, No Abdominal Pain, No Diarrhea, No Hematemesis, No Hemoptysis, No Unexpected Weight Loss, No Flank pain, No Melena, No Hematochezia, No Frequency, No Urgency, No Burning, No Hematuria, No Rashes, No Diaphoresis. Appetite is Normal Physical Exam Gen-AAO x 1, NAD, Afebrile, Demented, pleasant Head-NCAT, EOMI, PERRLA, Anicteric Sclera, No Posterior Pharyngeal Erythema Neck-Supple, No JVD, No Thyromegaly, No Masses, No LAD, No Bruits Lungs-Clear to Auscultation Bilaterally, No Rales, No Rhonchi, No Wheezing, No Crepitus Chest-No S4, +S1, +S2, No S3, No Murmurs, No Rubs, No Gallops, No Ectopy Abdomen-Soft, Bowel Sounds Present, Non Tender, Non Distended, No Hepatomegaly, No Splenomegaly, No Palpable Masses, No Rebound, No Rigidity, No Guarding Musculoskeletal-Full Range of Motion Bilaterally, No CVAT Extremities-No Cyanosis, No Clubbing, No Edema Nuero-Cranial Nerves II-XII grossly intact, Motor WNL, DTRs WNL, Strength WNL, Non Focal Psych-Normal Mood Total Time Total Time Spent Total Time Spent (In Minutes): 45 minutes Total Time Includes: Examination of the Patient, Discharge Planning, Medication Reconciliation and Communication With Other Providers Discharge Plan Discharge Items Patient Disposition: Personal Snf Reason For Visit: SEPSIS,URINARY RETENTION Discharge Diagnosis: Sepsis Urine retention Dementia Infectious Colitis Heel Wound Left IBS Constipation Condition: Fair Discharge Goals: Decrease discomfort and Improve function Activity: Resume your previous activity Activity Comment: As Tolerated Lifting: None Bathing: No limitations Exercise/Sports: None Weightbearing: Left partial and Right weightbearing Non-emergency contact: Primary Care Provider Call non-emergency contact if: you have any medication questions and your pain is not controlled Follow-up/Referrals: Harjinder Louis [Primary Care Provider] - 04/26/19 3:52 pm Diet: Regular Addtl Provider Instructions: L heel wound Care eval and treat Continue Solis for Now Prescriptions: New doxycycline hyclate 100 mg Capsule 100 mg PO BID Qty: 20 RF: 0 polyethylene glycol 3350 [Miralax] 17 gram Powder In Packet 17 g PO DAILY Qty: 30 RF: 0 docusate sodium 100 mg Capsule 100 mg PO BID Qty: 60 RF: 0 Santyl 250 unit/gram Ointment 1 applic EXT DAILY Qty: 30 RF: 0 metoprolol tartrate 25 mg Tablet 12.5 mg PO BID Qty: 60 RF: 0 ascorbic acid (vitamin C) 1,000 mg tablet 1 gm PO BID Qty: 60 RF: 0 Continued aspirin [Aspirin Childrens] 81 mg Tablet,Chewable 81 mg PO DAILY RF: 0 ArgiMent AT 10 gram-7 gram/42.75 gram Powder In Packet 1 packet PO BID RF: 0 calcium carbonate 500 mg calcium (1,250 mg) Tablet 500 mg PO BID RF: 0 PreserVision AREDS [id number] Capsule 1 cap PO BID RF: 0 ergocalciferol (vitamin D2) [Vitamin D2] 50,000 unit Capsule 50,000 unit PO WK RF: 0 acetaminophen [Tylenol] 325 mg Tablet 650 mg PO Q4H PRN (Reason: mild pain) RF: 0 bisacodyl [Dulcolax (bisacodyl)] 10 mg Suppository 10 mg TN DIRECTED PRN (Reason: Constipation) RF: 0 Fleet Enema 19-7 gram/118 mL Enema 118 ml TN DIRECTED PRN (Reason: Constipation) RF: 0 oxycodone 5 mg Tablet 5 mg PO Q4H PRN (Reason: mod. pain) RF: 0 Discontinued bisacodyl 10 mg Suppository 10 mg TN DIRECTED RF: 0 Stand-Alone Forms: [facility] Discharge Orders: Discharge Order (Routine); Ordered 04/26/19 Ordered By: Aniket Weaver Admission Data Admit Date/Time: 04/19/19 16:40 Attending Provider: Aniket Weaver Admit Provider: Hilda Shaw Primary Care Provider: Harjinder Louis Other Providers: Hilda Shaw ; Ean Atkins ; Anny Faith Service: [facility]
[2019-04-26] MEDS: METOPROLOL TARTRATE 25 MG TAB PO SCH (11:09)
== END 2019-04-26 16:04 | disposition home or self-care (01) | DRG 871 ==
LOC: ED 13:19 → 2N 16:40 → SUATTDRO 16:40 → 2N 18:02